=== PATIENT | female | born 1980 | race African-American/Black ===

== ENCOUNTER 2017-10-01 18:20 | Emergency (ER) | payer MEDICAID, OTHER ==
[~2017-10-01] VITALS: Ht 160 cm; Wt 63.1 kg
[2017-10-01] MEDS ORDERED: METHOCARBAMOL 750 MG TABLET ONE (19:25)
[2017-10-01] MEDS ORDERED: KETOROLAC 30 MG/1 ML ONE (19:26)
[2017-10-01] MEDS ORDERED: METHOCARBAMOL 750 MG TABLET PO ONE (19:30)
[2017-10-01] MEDS ORDERED: KETOROLAC 30 MG/1 ML IM ONE (19:30)
[2017-10-01 20:36] VITALS: BP 133/84
== END 2017-10-01 21:02 | disposition home or self-care (01) ==
LOC: ED 19:39
DX: M54.6 Pain in thoracic spine (principal); M62.830 Muscle spasm of back
CPT/HCPCS: 71046; 93005; 96372; 99284; J1885

== ENCOUNTER 2018-10-25 06:22 | Emergency (ER) | payer MEDICAID, OTHER ==
[~2018-10-25] VITALS: Ht 160 cm; Wt 64.9 kg
[2018-10-25] MEDS ORDERED: ACETAMINOPHEN 500 MG TABLET ONE (07:27)
[2018-10-25] MEDS ORDERED: ONDANSETRON ODT 4 MG ONE (07:27)
[2018-10-25] MEDS ORDERED: ACETAMINOPHEN 500 MG TABLET PO ONE (07:30)
[2018-10-25] MEDS ORDERED: ONDANSETRON ODT 4 MG PO ONE (07:30)
--- NOTE | 2018-10-25 07:33 | NUR ---
PT PRESENTS TO ED FOR R FLANK AND RUQ ABDOMINAL PAIN, STARTING YESTERDAY. STATES APPROX 2 WEEKS AGO PT HAD URINARY FREQUENCY AND URGENCY WHICH HAD RESOLVED. PT RESTING ON GURNEY, FAMILY AT BEDSIDE, CALL LIGHT IN REACH. UA CUP PROVIDED AND EDUCATION FOR OBTAINING CLEAN CATCH.
[2018-10-25 07:51] LABS: ALANINE AMINOTRANSFERASE 19 U/L (12-78); ALBUMIN 3.6 g/dL (3.4-5.0); ANION GAP 5 mmol/L (5-15); CALCIUM 8.6 mg/dL (8.5-10.1); CHLORIDE 110 mmol/L (98-107); CREATININE 0.79 mg/dL (0.55-1.02)
[2018-10-25 07:56] LABS: ALKALINE PHOSPHATASE 44 U/L (45-117); BILIRUBIN,TOTAL 0.1 mg/dL (0.2-1.0); TOTAL PROTEIN 7.2 g/dL (6.4-8.2)
[2018-10-25 08:09] LABS: BASOPHILS # (AUTO) 0.04 x10^3/uL (0-0.1); BASOPHILS % (AUTO) 0 % (0-1); EOSINOPHILS # (AUTO) 0.25 x10^3/uL (0-0.4); EOSINOPHILS % (AUTO) 3 % (1-7); LYMPHOCYTES # (AUTO) 2.52 x10^3/uL (1-3.4); LYMPHOCYTES % (AUTO) 31 % (22-44); MD NO; MEAN CORPUSCULAR HEMOGLOBIN 30.2 pg (27.0-34.8); MEAN CORPUSCULAR HGB CONC 33.8 g/dL (32.4-35.8); MEAN CORPUSCULAR VOLUME 89.4 fL (80-100); MEAN PLATELET VOLUME 7.5 fL (7.4-10.4); MONOCYTES % (AUTO) 6 % (2-9); NEUTROPHILS # (AUTO) 4.98 x10^3/uL (1.8-6.8); NEUTROPHILS % (AUTO) 60 % (42-75); PLATELET COUNT 281 x10^3/uL (130-400); RED BLOOD COUNT 4.79 x10^6/uL (3.82-5.3); RED CELL DISTRIBUTION WIDTH 12.9 % (9.6-15.2)
[2018-10-25 08:44] LABS: MICROSCOPIC AUTO
[2018-10-25 08:46] LABS: CULTURE INDICATED? YES
[2018-10-25 09:06] VITALS: BP 119/59
--- NOTE | 2018-10-25 10:12 | NUR ---
Patient/Caregiver given discharge instructions and they have confirmed that they understand the instructions. Patient ambulatory with steady gait. Pt left with all personal belongings.
== END 2018-10-25 10:56 | disposition home or self-care (01) ==
LOC: ED 10:17
DX: N10 Acute pyelonephritis (principal); R10.11 Right upper quadrant pain; R10.31 Right lower quadrant pain; R10.30 Lower abdominal pain, unspecified
CPT/HCPCS: 36415; 74176; 80053; 81001; 83690; 84703; 85025; 87086; 99284; Q0162

== ENCOUNTER 2018-12-22 13:21 | Emergency (ER) | payer SELFPAY ==
[~2018-12-22] VITALS: Ht 160 cm; Wt 64.3 kg
[2018-12-22 13:28] VITALS: BP 122/81
== END 2018-12-22 14:21 | disposition home or self-care (01) ==
LOC: ED 14:00
DX: S60.862A Insect bite (nonvenomous) of left wrist, initial encounter (principal); S50.862A Insect bite (nonvenomous) of left forearm, initial encounter; M13.132 Monoarthritis, not elsewhere classified, left wrist; F17.210 Nicotine dependence, cigarettes, uncomplicated; W57.XXXA Bitten or stung by nonvenomous insect and other nonvenomous arthropods, initial encounter; Y93.89 Activity, other specified; Y92.89 Other specified places as the place of occurrence of the external cause; Y99.8 Other external cause status
CPT/HCPCS: 29125; 99283